=== PATIENT | male | born 1970 | race Asian ===

== ENCOUNTER 2024-01-11 07:14 | Day surgery (SDC) | payer OTHER ==
[~2024-01-11] VITALS: Ht 167.6 cm; Wt 86.6 kg
[2024-01-11] MEDS ORDERED: LIDOCAINE 2% 100 MG/5 ML UJET TP ONE (08:02)
[2024-01-11] MEDS: fentaNYL citrate 0.05 MG/ML VIAL ONE (08:30)
== END 2024-01-11 09:28 | disposition home or self-care (01) ==
LOC: MDS 07:14 → MMU 07:16 → MDS 09:28
PROVIDERS: ATTEND Internal Medicine Gastroenterology
DX: Z12.11 Encounter for screening for malignant neoplasm of colon (principal); I11.9 Hypertensive heart disease without heart failure; E78.00 Pure hypercholesterolemia, unspecified; E11.9 Type 2 diabetes mellitus without complications; Z79.899 Other long term (current) drug therapy; Z98.890 Other specified postprocedural states
CPT/HCPCS: 45378; 82948; J3010